=== PATIENT | male | born 1960 | race Two or more races ===

== ENCOUNTER 2017-11-30 22:33 | Emergency (ER) | payer OTHER ==
[~2017-11-30] VITALS: Ht 175.3 cm; Wt 121.1 kg
[2017-12-01] MEDS ORDERED: KETOROLAC TROMETH 60MG/2ML VIAL IM ONE (02:00)
[2017-12-01 02:14] VITALS: BP 140/95
== END 2017-12-01 01:49 | disposition home or self-care (01) ==
LOC: ER 22:40
DX: S76.312A Strain of muscle, fascia and tendon of the posterior muscle group at thigh level, left thigh, initial encounter (principal); S76.311A Strain of muscle, fascia and tendon of the posterior muscle group at thigh level, right thigh, initial encounter; Z88.0 Allergy status to penicillin; X58.XXXA Exposure to other specified factors, initial encounter; Y93.89 Activity, other specified; Y99.8 Other external cause status; Y92.89 Other specified places as the place of occurrence of the external cause
CPT/HCPCS: 93005; 96372; 99283; J1885

== ENCOUNTER 2018-09-30 16:31 | Emergency (ER) | payer OTHER ==
[~2018-09-30] VITALS: Ht 177.8 cm; Wt 109.8 kg
[2018-09-30 19:01] LABS: Basophils # (auto) 0.1 uL; Basophils % (auto) 1.3 % (0.0-2.0); Eosinophils # (auto) 1.1 uL; Eosinophils % (auto) 11.1 % (0.0-7.0); Hematocrit 43.6 % (41.0-53.0); Hemoglobin 14.6 g/dL (13.5-17.5); Lymphocytes # (auto) 2.6 uL; Lymphocytes % (auto) 25.9 % (10.0-50.0); Mean Corpuscular Hemoglobin 29.6 pg (28.0-32.0); Mean Corpuscular Hgb Conc. 33.4 g/dL (32.0-36.0); Mean Corpuscular Volume 88.7 fL (80.0-100.0); Monocytes # (auto) 0.8 uL; Monocytes % (auto) 7.5 % (0.0-12.0); Neutrophils # (auto) 5.4 uL; Neutrophils % (auto) 54.2 % (37.0-80.0); Platelet Count (auto) 357 10^3/uL (140-450); Red Blood Cells 4.92 10^6/uL (4.5-5.90); Red Cell Distribution Width 14.8 % (11.8-14.3)
[2018-09-30 19:21] LABS: INR 0.91 (0.9-1.15); Magnesium 2.4 mg/dL (1.6-2.6); Partial Thromboplastin Time 25.4 sec (23.78-33.04); Prothrombin Time 9.8 sec (9.27-12.13)
[2018-09-30 19:27] LABS: BUN/Creatinine Ratio 10.9; Bilirubin, Total 0.3 mg/dL (0.2-1.0); Calcium 8.9 mg/dL (8.5-10.1); Total Protein 7.9 g/dL (6.4-8.2)
[2018-09-30] MEDS ORDERED: cefTRIAXone SOD 1,000 MG VL IM ONE (21:30)
[2018-09-30 23:31] VITALS: BP 142/81
== END 2018-09-30 23:36 | disposition home or self-care (01) ==
LOC: ER 16:31 → EEVIPCON 16:31 → ER 23:36
DX: J20.9 Acute bronchitis, unspecified (principal); R94.5 Abnormal results of liver function studies; I10 Essential (primary) hypertension; Z87.891 Personal history of nicotine dependence
CPT/HCPCS: 36415; 71045; 80053; 82150; 83605; 83690; 83735; 84484; 85025; 85379; 85610; 85730; 87040; 93005; 94761; 96372; 99284; J0696

== ENCOUNTER 2020-03-07 15:23 | Inpatient (IN) | payer OTHER ==
[~2020-03-07] VITALS: Ht 175.3 cm; Wt 119.3 kg
[~2020-03-07 15:23] MED LIST: ALBUAER3 IN; LEVO-28 PO; PRED20TA2 PO
[2020-03-07 16:09] LABS: Basophils # (auto) 0.1 10 ^3/uL (0-0.2); Basophils % (auto) 0.7 % (0.0-2.0); Eosinophils # (auto) 0.1 10 ^3/uL (0-0.8); Eosinophils % (auto) 0.4 % (0.0-7.0); Hematocrit 45.4 % (41.0-53.0); Hemoglobin 15.3 g/dL (13.5-17.5); Lymphocytes # (auto) 1.4 10 ^3/uL (0.4-5.4); Lymphocytes % (auto) 11.1 % (10.0-50.0); Mean Corpuscular Hemoglobin 30.2 pg (28.0-32.0); Mean Corpuscular Hgb Conc. 33.7 g/dL (32.0-36.0); Mean Corpuscular Volume 89.8 fL (80.0-100.0); Monocytes # (auto) 0.4 10 ^3/uL (0-1.3); Monocytes % (auto) 2.9 % (0.0-12.0); Neutrophils # (auto) 10.9 10 ^3/uL (1.6-8.6); Neutrophils % (auto) 84.9 % (37.0-80.0); Platelet Count (auto) 327 10^3/uL (140-450); Red Blood Cells 5.06 10^6/uL (4.5-5.90); Red Cell Distribution Width 15.1 % (11.8-14.3); White Blood Cell 12.8 10^3/uL (4.4-10.8)
[2020-03-07 16:23] LABS: Calcium 9.2 mg/dL (8.5-10.1); Potassium 3.6 mmol/L (3.5-5.1)
[2020-03-07 16:26] LABS: BUN/Creatinine Ratio 13.9; Bilirubin, Total 0.4 mg/dL (0.2-1.0); Total Protein 7.6 g/dL (6.4-8.2)
[2020-03-07] MEDS ORDERED: levoFLOXacin 250 MG TAB PO ONE (17:00)
[2020-03-07] MEDS ORDERED: GASTROGRAFIN 30 ML SOL ONE ×2 (17:27→17:34)
[2020-03-07] MEDS ORDERED: NITROGLYCERIN 0.4 MG SL TAB SL PRN (19:15)
[2020-03-07] MEDS ORDERED: MORPHINE SULF INJ 2 MG/ML SYRINGE 1ML IV PRN (19:15)
[2020-03-07] MEDS: D5W/SOD CHL 0.45% 1,000 ML IV SCH (20:17)
[2020-03-07 20:53] VITALS: BP 113/68
--- NOTE | 2020-03-07 20:53 | NUR ---
MS admit from ER SOO,KINSEY INTERIANO admitted to tele/MS after SBAR received. Patient oriented to Allie Hylton, primary RN, unit, room, bed, and unit policies regarding patient care and visiting hours. Patient weighed by bedscale and encouraged to call if they need something. All questions and concerns addressed, patient verbalized understanding.
[2020-03-08] VITALS (7 sets, daily range): BP systolic 94–112; BP diastolic 60–79
[2020-03-08] MEDS: D5W/SOD CHL 0.45% 1,000 ML IV SCH ×4 (01:36→22:29)
--- NOTE | 2020-03-08 01:36 | NUR ---
MRSA swab sent to lab per MD order per protocol.
--- NOTE | 2020-03-08 01:37 | NUR ---
Med Rec Reviewed current medication with patient, patient stated he is also taking a blood pressure medication that he doesn't know the name or dosage of.
[2020-03-08 05:40] LABS: Basophils # (auto) 0.1 10 ^3/uL (0-0.2); Basophils % (auto) 0.5 % (0.0-2.0); Eosinophils # (auto) 0.1 10 ^3/uL (0-0.8); Eosinophils % (auto) 1.4 % (0.0-7.0); Hematocrit 41.6 % (41.0-53.0); Hemoglobin 13.8 g/dL (13.5-17.5); Lymphocytes # (auto) 3.1 10 ^3/uL (0.4-5.4); Lymphocytes % (auto) 29.4 % (10.0-50.0); Mean Corpuscular Hemoglobin 30.1 pg (28.0-32.0); Mean Corpuscular Hgb Conc. 33.3 g/dL (32.0-36.0); Mean Corpuscular Volume 90.4 fL (80.0-100.0); Monocytes # (auto) 0.8 10 ^3/uL (0-1.3); Monocytes % (auto) 7.8 % (0.0-12.0); Neutrophils # (auto) 6.4 10 ^3/uL (1.6-8.6); Neutrophils % (auto) 60.9 % (37.0-80.0); Nucleated Red Blood Cells % 0.1 %; Platelet Count (auto) 280 10^3/uL (140-450); Red Cell Distribution Width 15.5 % (11.8-14.3); White Blood Cell 10.5 10^3/uL (4.4-10.8)
[2020-03-08 06:01] LABS: Potassium 3.4 mmol/L (3.5-5.1)
[2020-03-08 06:07] LABS: BUN/Creatinine Ratio 15.5; Calcium 8.7 mg/dL (8.5-10.1)
--- NOTE | 2020-03-08 07:30 | NUR ---
Opening Shift Note Assumed care of patient, awake and alert. No S/S of distress. Patient denies having any SOB or pain. Pt stated that he does have "difficulties swallowing and talking". Patients voice is muffled. Patient also stated that his voice has been muffled for a few days. Bed in lowest and locked position with side rails UP X2 and call light in reach. Instructed on POC and to call for assist PRN, will continue to monitor for changes Q1hr and PRN.
[2020-03-08] MEDS: ENOXAPARIN SOD 40 MG/0.4 ML SYRINGE SC SCH (08:41)
[2020-03-08] MEDS: PANTOPRAZOLE 40 MG/10 ML VIAL INJ IV SCH (08:41)
[2020-03-08 11:50] LABS: Urine Bacteria NONE SEEN /hpf (None Seen); Urine Blood Negative /uL (Negative); Urine Specific Gravity 1.011 (1.001-1.035); Urine WBC 1 /hpf (0 - 3)
[2020-03-08 12:09] LABS: Alcohol, Urine < 3.0 mg/dL (0-10); Amphetamine Screen, Urine NEGATIVE (NEGATIVE); Barbiturate Scree,Urine NEGATIVE (NEGATIVE); Benzodiazephine Screen, Urine NEGATIVE (NEGATIVE); Cannabinoid Screen, Urine NEGATIVE (NEGATIVE); Cocaine Screen, Urine NEGATIVE (NEGATIVE); Opiate Scree,Urine NEGATIVE (NEGATIVE); Phencyclidine Screen, Urine NEGATIVE (NEGATIVE)
--- NOTE | 2020-03-08 13:10 | NUR ---
PATIENT STATED THAT HE IS HAVING DIFFICULTIES BREATHING. PATIENT SATURATING APPROXIMATELY 93-94% ON RA. RN PLACED PATIENT ON 2L NC AND PATIENT IS SATURATING 97-98% ON 2L NC. RN PAGED DR. WALTERS.
[2020-03-08] MEDS ORDERED: methylPREDNISolone SOD SUCC 125 MG/2 ML VL IV ONE (13:15)
--- NOTE | 2020-03-08 13:15 | NUR ---
SPOKE TO DR. WALTERS. RN UPDATED DR. WALTERS ON PT STATUS. MD AWARE AND NEW ORDERS RECEIVED, READ BACK AND VERIFIED. SEE EMR FOR ORDERS.
[2020-03-08] MEDS: ALBUTEROL SULF 2.5 MG/0.5ML(0.5%) NEB SOLN NEB PRN ×2 (13:22→19:18)
--- NOTE | 2020-03-08 16:16 | NUR ---
Nutrition Assessment Notes Please refer to link for full assessment notes. Est Energy needs: 0865-3909 kcals (14-18 kcal/kgBW) Est Protein needs: 109-145 gms/day (1.5-2.0 gm/kgIBW) d/t obesity Will continue to monitor and reassess prn. Addendum: 03/08/20 at [address] Amended: Links added.
--- NOTE | 2020-03-08 16:30 | NUR ---
SPOKE TO DR. WALTERS. RN NOTIFIED DR. WALTERS THAT THE PATIENT IS REQUESTING TO EAT. PER DR. WALTERS, HE WANTS DR. RAPP TO EVALUATE THE PATIENT PRIOR TO CHANGING THE DIET.
[2020-03-08] MEDS: BUDESONIDE (INHALATION) 0.5 MG/2 ML NEB NEB SCH (19:19)
--- NOTE | 2020-03-08 19:20 | NUR ---
Opening Shift Note Assumed care of patient after receiving report from SHAZIA Gregory. Patient awake and alert, resting in bed comfortably with no S/S of distress/SOB or pain. Call light within reach, bed in lowest position x2 side rails, HOB low fowlers. Instructed on POC and to call for assist PRN, will continue to monitor for changes Q1hr and PRN.
[2020-03-08] MEDS: methylPREDNISolone SOD SUCC 125 MG/2 ML VL IV SCH (22:29)
--- NOTE | 2020-03-09 00:38 | NUR ---
RT paged Patient requesting breathing treatment, called RT.
[2020-03-09] MEDS: ALBUTEROL SULF 2.5 MG/0.5ML(0.5%) NEB SOLN NEB PRN ×5 (00:56→20:10)
[2020-03-09 05:00] VITALS: BP 100/58
[2020-03-09] MEDS: D5W/SOD CHL 0.45% 1,000 ML IV SCH ×3 (05:26→17:55)
[2020-03-09] MEDS: BUDESONIDE (INHALATION) 0.5 MG/2 ML NEB NEB SCH ×2 (06:14→20:10)
--- NOTE | 2020-03-09 07:30 | NUR ---
Opening Shift Note Assumed care of patient, awake and alert. No S/S of distress. Patient denies having any SOB or pain. Pt stated that his difficulties in swallowing and talking "are better today". Patients voice is muffled, but has improved since yesterday. Bed in lowest and locked position with side rails UP X2 and call light in reach. Instructed on POC and to call for assist PRN, will continue to monitor for changes Q1hr and PRN.
[2020-03-09 07:50] VITALS: BP 99/67
[2020-03-09 09:00] VITALS: BP 99/67
[2020-03-09] MEDS: ENOXAPARIN SOD 40 MG/0.4 ML SYRINGE SC SCH (10:04)
[2020-03-09] MEDS: methylPREDNISolone SOD SUCC 125 MG/2 ML VL IV SCH ×2 (10:04→21:29)
[2020-03-09] MEDS: PANTOPRAZOLE 40 MG/10 ML VIAL INJ IV SCH ×2 (10:04→21:28)
[2020-03-09] MEDS: FLUCONAZOLE 200MG/100ML 100 ML IV SCH ×2 (10:05→12:59)
[2020-03-09 13:00] VITALS: BP 117/61
--- NOTE | 2020-03-09 13:18 | NUR ---
RT ON STAND BY DURING SWALLOWING EVAL. PT ON 2L WITH SPO2 97%.
--- NOTE | 2020-03-09 13:26 | NUR ---
SWALLOW EVALUATED. PATIENT HAS NATURAL TEETH UPPER, SOME LOWER, SOME MISSING. PATIENT ABLE TO FOLLOW DIRECTIONS. PATIENT ABLE TO TOLERATE PUREE DIET TEXTURE WITH NECTAR THICKENED LIQUIDS WITH NO OVERT SIGNS OR SYMPTOMS OF ASPIRATION. PATIENT COUGHED ON THIN LIQUIDS. PATIENT EDUCATED IN SAFETY OF SWALLOW INCLUDING SMALL BITES AND SIPS, SLOW RATE AND ALTERNATING SOLID AND LIQUIDS. NURSING NOTIFIED.
--- NOTE | 2020-03-09 13:48 | NUR ---
RN PAGED RT FOR BREATHING TX. ALBUTEROL PRN GIVEN AT APPROXIMATELY 1126. EXPLAINED TO RN A ONCE TIME TX HAS TO BE ORDERED FOR PT. PT HAD A BOWEL MOVEMENT ON THE FLOOR. SHAZIA VARELA AT BEDSIDE.
--- NOTE | 2020-03-09 13:50 | NUR ---
PATIENT STATED THAT HE IS "HAVING DIFFICULTIES BREATHING". PATIENT IS STANDING AT BEDSIDE AND WHEN RN ENCOURAGED THE PATIENT TO SIT DOWN, THE PATIENT STATED, "I CAN'T SIT, IT IS MUCH EASIER TO BREATH WHEN I STAND". AFTER ASSESSING THE PATIENT, THE PATIENTS LUNGS SOUND COARSE AND THE PATIENTS OXYGEN SATURATION IS APPROXIMATELY 90% ON RA. RN PLACED THE PATIENT ON 2L NC AND THE PATIENT BEGAN TO SATURATE APPROXIMATELY 94%. PATIENT STATED "THE DIFFICULTIES BREATHING JUST COME ON OUT OF NO WHERE AND FAST". PATIENT WAS EVENTUALLY ABLE TO SIT IN A CHAIR AT BEDSIDE AND STATED THAT HE IS BEGINNING TO "BREATH BETTER". RN PAGED RT AND MD.
--- NOTE | 2020-03-09 14:00 | NUR ---
PAGED DR. WALTERS. AWAITING CALL BACK.
--- NOTE | 2020-03-09 14:25 | NUR ---
PAGED DR. WALTERS. AWAITING CALL BACK.
--- NOTE | 2020-03-09 14:30 | NUR ---
SPOKE TO DR. WALTERS. RN UPDATED DR. GREEN ON PATIENTS SOB AND OXYGEN SATURATION OF 90% ON RA AND PATIENT PLACED ON 3L O2 VIA NC WITH A SATURATION OF 94%. MD AWARE AND NEW ORDERS RECEIVED, READ BACK AND VERIFIED. SEE EMR FOR ORDERS.
[2020-03-09] MEDS ORDERED: IOHEXOL 350 MG/ML 100ML IJ ONE (14:55)
[2020-03-09 16:57] VITALS: BP 101/69
--- NOTE | 2020-03-09 19:35 | NUR ---
Opening Shift Note Assumed care of patient, awake and alert. No S/S of distress/SOB or pain. Instructed on POC and to be NPO after MN, for Barium swallow tomorrow. Instructed to call for assist PRN, patient verbalized understanding. Safety precaution in place, call light within reach, will continue to monitor for changes Q1hr and PRN.
[2020-03-09 22:00] VITALS: BP 115/70
[2020-03-10] MEDS: D5W/SOD CHL 0.45% 1,000 ML IV SCH ×2 (01:52→06:00)
[2020-03-10] MEDS: ALBUTEROL SULF 2.5 MG/0.5ML(0.5%) NEB SOLN NEB PRN ×4 (02:34→23:30)
[2020-03-10 04:58] VITALS: BP 111/78
--- NOTE | 2020-03-10 07:35 | NUR ---
OPENING NOTE Assumed care of patient, awake and alert. No S/S of distress/SOB or pain. POC procedure in radiology esophageal barium swallow. Instructed to call for assist PRN, patient verbalized understanding. Safety precaution in place, call light within reach, [employer] guards at bedside, will continue to monitor for changes Q1hr and PRN.
[2020-03-10] MEDS ORDERED: GASTROGRAFIN 120 ML SOL ONE (08:56)
[2020-03-10 09:15] VITALS: BP 126/90
[2020-03-10] MEDS ORDERED: BARIUM SULFATE 98% 340 GM PWDR ONE (09:26)
[2020-03-10] MEDS ORDERED: EZ-GAS II GRANULES (RADIOLOGY USE) PO ONE (09:26)
[2020-03-10] MEDS: ENOXAPARIN SOD 40 MG/0.4 ML SYRINGE SC SCH (10:00)
[2020-03-10] MEDS: BUDESONIDE (INHALATION) 0.5 MG/2 ML NEB NEB SCH ×2 (10:04→19:02)
[2020-03-10] MEDS: methylPREDNISolone SOD SUCC 125 MG/2 ML VL IV SCH ×2 (10:12→21:54)
[2020-03-10] MEDS: PANTOPRAZOLE 40 MG/10 ML VIAL INJ IV SCH ×2 (10:12→21:53)
[2020-03-10] MEDS: FLUCONAZOLE 200MG/100ML 100 ML IV SCH ×2 (10:12→11:00)
--- NOTE | 2020-03-10 10:12 | NUR ---
Respiratory note: PRN ALBUTEROL MED-NEB ADMINISTERED AT THIS TIME FOR PATIENT C/O SOB. RN ADRIANA AT BEDSIDE AND AWARE OF MEDICATION ADMINISTRATION.
--- NOTE | 2020-03-10 11:24 | NUR ---
Nutrition Followup Notes WT: 112.4 kg Pt with RT when rounded this am. per records pt with dysphagia and to have barium test today. per records pt s/p ST eval and on pureed diet with no PO recorded yet. F/u mod 3-5 days Est Energy needs: 8225-8106 kcals (14-18 kcal/kgBW), Est Protein needs: 109-145 gms/day (1.5-2.0 gm/kgIBW) d/t obesity. Will continue to monitor and reassess prn. LABS: GLU 117 H, rest lab wnl GI: Last BM noted on 03/04 per RN doc. BS: 20 low risk, Please refer to wound assessment report for full details. PES: 1) Increased nutrient needs aeb pt with dysphagia, pending swallow eval r/t pt with no PO intake 2) Obesity aeb 152% IBW and BMI of 36.0 kg/m2 r/t energy intake in excess of energy needs Comments Will continue to closely monitor pertinent labs, NPO status, PO intake and skin status prn. Will followup in 3-5 days 1) continue assistance with meals. 2) consider ensure Enlive 1 carton bid if PO is low. 3) consider alternate nutrition support if GI is not accessible. 4) Continue current plan of care
[2020-03-10 12:42] LABS: Hepatitis A Ab IgM Negative; Hepatitis B Core IgM Negative; Hepatitis B Surface Antigen Negative (Negative); Hepatitis C Antibody Negative (Negative)
[2020-03-10 14:00] VITALS: BP 111/87
--- NOTE | 2020-03-10 14:29 | NUR ---
PATIENT REFUSED MRI-BRAIN CANNOT TOLERATE LYING FLAT.
[2020-03-10 16:44] VITALS: BP 107/70
--- NOTE | 2020-03-10 19:08 | NUR ---
Respiratory note: Administered PRN medneb tx per pt's request due to SOB. HR 93, RR 22, SPO2 98% on 3lpm nasal cannula. Officers at bedside. Pt aware to call for RT again if needed.
--- NOTE | 2020-03-10 19:29 | NUR ---
PATIENT C/O SOB. PAGED RESP STAT. O2 SAT 96% RECOMMEND CXR STAT. PATIENT SITTING UP IN CHAIR, TOLERATING WELL. WILL CONTINUE TO MONITOR.
--- NOTE | 2020-03-10 19:30 | NUR ---
Patient complained of SOB, restless and transferred to chair. Bumped up O2 at 4 Lpm/NC, O2 Sat at 96%. RT at bedside. Paged Dr. Grajeda, awaiting call back
--- NOTE | 2020-03-10 19:38 | NUR ---
Dr. Grajeda called and updated on patient's status. Received order at this time and read back. Received also an order to put Pulmo Consult for SOB. Acknowledged and will carry out order.
--- NOTE | 2020-03-10 19:46 | NUR ---
Dr. Patricio at bedside. Updated on patient's status. Received orders at this time and read back
[2020-03-10] MEDS ORDERED: LORazepam 2MG/ML-1ML VIAL IV PRN (20:00)
--- NOTE | 2020-03-10 20:05 | NUR ---
Called CT Scan and informed of Stat CT Angio of the chest. Per Staff, machine is not available at this time because it was used by Covid patient. Put patient on NPO at this time
[2020-03-10] MEDS: ENOXAPARIN SOD 120 MG/0.8 ML SYRINGE SC SCH (21:54)
[2020-03-10 22:07] VITALS: BP 124/72
--- NOTE | 2020-03-10 23:30 | NUR ---
Respiratory note: AT BEDSIDE FOR MED XU MISTRY.
[2020-03-11] MEDS ORDERED: IOHEXOL 350 MG/ML 100ML IJ ONE ×2 (00:06→09:09)
--- NOTE | 2020-03-11 00:45 | NUR ---
Brought patient down for CT Angio of the chest, patient unable to lay down and became anxious. Brought patient up in the room with prison guards
[2020-03-11 05:00] VITALS: BP 129/75
[2020-03-11] MEDS: ALBUTEROL SULF 2.5 MG/0.5ML(0.5%) NEB SOLN NEB PRN ×2 (06:08→19:26)
[2020-03-11] MEDS: BUDESONIDE (INHALATION) 0.5 MG/2 ML NEB NEB SCH ×2 (06:08→22:45)
[2020-03-11 06:44] LABS: Basophils # (auto) 0 10 ^3/uL (0-0.2); Basophils % (auto) 0.2 % (0.0-2.0); Eosinophils # (auto) 0 10 ^3/uL (0-0.8); Hematocrit 41.1 % (41.0-53.0); Hemoglobin 13.6 g/dL (13.5-17.5); Lymphocytes % (auto) 6.9 % (10.0-50.0); Mean Corpuscular Hemoglobin 30.2 pg (28.0-32.0); Mean Corpuscular Hgb Conc. 33.1 g/dL (32.0-36.0); Mean Corpuscular Volume 91.1 fL (80.0-100.0); Monocytes # (auto) 0.3 10 ^3/uL (0-1.3); Monocytes % (auto) 2.1 % (0.0-12.0); Neutrophils # (auto) 13.3 10 ^3/uL (1.6-8.6); Neutrophils % (auto) 90.8 % (37.0-80.0); Platelet Count (auto) 280 10^3/uL (140-450); Red Blood Cells 4.51 10^6/uL (4.5-5.90); Red Cell Distribution Width 15.8 % (11.8-14.3); White Blood Cell 14.6 10^3/uL (4.4-10.8)
[2020-03-11 07:02] LABS: Albumin 3.3 g/dL (3.4-5.0); Potassium 4.4 mmol/L (3.5-5.1)
[2020-03-11 07:07] LABS: Bilirubin, Total 0.3 mg/dL (0.2-1.0); Total Protein 6.6 g/dL (6.4-8.2)
[2020-03-11 08:39] VITALS: BP 124/82
[2020-03-11] MEDS: ENOXAPARIN SOD 120 MG/0.8 ML SYRINGE SC SCH (10:16)
[2020-03-11] MEDS: PANTOPRAZOLE 40 MG/10 ML VIAL INJ IV SCH ×2 (10:16→21:35)
[2020-03-11] MEDS: methylPREDNISolone SOD SUCC 125 MG/2 ML VL IV SCH (10:16)
[2020-03-11] MEDS: FLUCONAZOLE 200MG/100ML 100 ML IV SCH ×2 (10:16→11:25)
[2020-03-11] MEDS: ASPirin 81 mg TAB PO SCH (10:16)
[2020-03-11 13:00] VITALS: BP 147/97
[2020-03-11 17:00] VITALS: BP 142/96
[2020-03-11] MEDS: PYRIDOSTIGMINE BROMIDE 60 MG TAB PO SCH ×2 (19:15→21:35)
--- NOTE | 2020-03-11 19:26 | NUR ---
Respiratory note: AT BEDSIDE FOR MED XU MISTRY.
--- NOTE | 2020-03-11 19:27 | NUR ---
Respiratory note: AT BEDSIDE FOR MED NEB TX. TX GIVEN VIA EZPAP, WITH GOOD PT EFFORT.
--- NOTE | 2020-03-11 19:36 | NUR ---
Dr. Vargas/New orders/Transfer Dr. Vargas was in to see the patient. He does not think the patient had a stroke. He thinks it's possible the patient has Myasthenia Gravis. He did a test where he put an ice pack on the droopy eyed side of the patient's face and after only a few minutes, the patient was able to open his eye all the way. He wrote an order for a medication. He also ordered Forced vital capacity to be done by RT now and every 4 hours. RT was paged. Due to this and the possibility of respiratory failure, he wants the patient transferred to [facility]. Dr. Patricio was on the floor making rounds and was notified about the patient. This nurse also notified the charge nurse who stated she will let the warehouse administrative assistant know. All of this information was passed along to the manager critical care nurse.
--- NOTE | 2020-03-11 19:58 | NUR ---
Report received from SHAZIA Mcmahon, day shift after Dr. Vargas gave orders to transfer pt to [facility] 2/2 diagnosis of possible Myasthenia Gravis and RT care needed now and q4h. Pt not seen by this RN. Charge nurse, SHAZIA Ham, informed this RN to give report to SHAZIA Guardado; done. Tele box requested by this RN and obtained by MANAGEMENT SME; placed on pt by MANAGEMENT SME.
--- NOTE | 2020-03-11 20:30 | NUR ---
NEGATIVE INSPIRATORY FORCE VIA NIF MANOMETER PERFORMED. Pt gave 4 good effort attempts with proper education/instructions and seal. results are as followed: -[id number] -[id number] -[id number] -[id number]
--- NOTE | 2020-03-11 21:00 | NUR ---
COMMUNICATED NIF RESULTS WITH DR WHITTEN, PT IS TO BE MONITORED FOR DECLINE AND TO CONTINUE Q4 NIF WITH TXS PRE AND POST.
--- NOTE | 2020-03-11 21:01 | NUR ---
SHAZIA ROBERTSON COMMUNICATED ON NIF RESULTS AND MD WHITTEN COMMUNICATION.
[2020-03-11] MEDS: ATORVASTATIN 20 MG TAB PO SCH (21:35)
[2020-03-11] MEDS: IPRATROPIUM BROM 0.5 MG/2.5ML INH SOL NEB SCH (22:45)
[2020-03-11] MEDS: ACETYLCYSTEINE 20%(200MG/ML) SOL 4ML NEB SCH (22:46)
[2020-03-11] MEDS: ALBUTEROL SULF 2.5 MG/0.5ML(0.5%) NEB SOLN NEB SCH (22:47)
[2020-03-11 22:54] VITALS: BP 148/87
--- NOTE | 2020-03-11 22:55 | NUR ---
Pt expressed in the beginning of the tx that he feels much better and that the txs seem to be working. During txs via ezpap pt states "these long treatments are exhausting, am I gonna get theses all the time now". Explained/educated pt on med scheduled and on the need for this lung exercise due to atelectasis per cxr. Pt explains his understanding and that he will comply pt stated "ill do whatever you guys nee me to do, to get better".
--- NOTE | 2020-03-11 22:57 | NUR ---
NEGATIVE INSPIRATORY FORCE VIA NIF MANOMETER PERFORMED. Pt gave 3 good effort attempts pre and post with proper education/instructions and seal. results are as followed: PRE TX -[id number] -[id number] -[id number] POST TX -[id number] -[id number] -[id number]
--- NOTE | 2020-03-11 23:00 | NUR ---
Respiratory note: SHAZIA Guardado communicated on 22:00 pre and post NIF results.
[2020-03-12] VITALS (8 sets, daily range): BP systolic 94–125; BP diastolic 56–86
[2020-03-12] MEDS: IPRATROPIUM BROM 0.5 MG/2.5ML INH SOL NEB SCH ×6 (03:05→22:38)
[2020-03-12] MEDS: ALBUTEROL SULF 2.5 MG/0.5ML(0.5%) NEB SOLN NEB SCH ×6 (03:05→22:38)
--- NOTE | 2020-03-12 03:15 | NUR ---
Negative Inspiratory Force measurement obtained. Pt gave 3 attempts with good effort pre and post tx, with proper education/instructions and seal around mouth piece. PRE TX -[id number] -[id number] -[id number] POST TX -[id number] -[id number] -[id number]
[2020-03-12] MEDS: PYRIDOSTIGMINE BROMIDE 60 MG TAB PO SCH ×4 (05:36→21:42)
--- NOTE | 2020-03-12 06:38 | NUR ---
Respiratory note: At bedside for scheduled tx. Pre-tx NIF attempted x3 with good effort, measurements obtained: -22, -18, -18 cmH2O. Breathing tx administered with EZ-PAP, pt tolerated well, no adverse reactions noted. Pt says he is feeling better this morning, able to lay bed back a little more. Post-tx NIF attempted x3 with measurements obtained: -20, -20, -18 cmH2O. Pt back on 3lpm nasal cannula, SPO2 94%. No s/s of respiratory distress noted at this time. Pt aware to call for RT if needed. Officers at bedside.
[2020-03-12] MEDS: ACETYLCYSTEINE 20%(200MG/ML) SOL 4ML NEB SCH ×3 (06:39→22:42)
--- NOTE | 2020-03-12 08:00 | NUR ---
Opening Shift Note Assumed care of patient, awake, alert and oriented X4. No S/S of distress/SOB or pain. Right eye droop but patient able to open eye and see clearly, mouth symmetrical, verbalizing no difficulty with swallowing. O2 @ 3 LPM via nasal cannula with sats @ 94%. Tele# 69, sinus bradycardia @ 54 bpm. IV to right antecubital, 20 gauge, patent and saline locked. Instructed on POC and to call for assist PRN, verbalized understanding. Bed locked, in lowest position, call light within reach, guards X2 at bedside, will continue to monitor for changes Q1hr and PRN.
[2020-03-12] MEDS ORDERED: MORPHINE SULF INJ 2 MG/ML SYRINGE 1ML IV PRN ×2 (08:15)
[2020-03-12] MEDS ORDERED: NITROGLYCERIN 0.4 MG SL TAB SL PRN ×2 (08:15)
[2020-03-12] MEDS: BUDESONIDE (INHALATION) 0.5 MG/2 ML NEB NEB SCH ×2 (10:18→19:50)
--- NOTE | 2020-03-12 10:19 | NUR ---
Respiratory note: At bedside for medneb tx. Pre-tx NIF attempted x3 with best effort measured at 30 cmH2O. Medneb tx administered with EZ-PAP and CPT, pt tolerated well, no adverse reactions noted. Post-tx NIF attempted x3 with best effort measured at 26 cmH2O. SHAZIA Frank at bedside, aware of NIF measurements. Pt sitting in chair, back on 3lpm nasal cannula SPO2 95%, no s/s of respiratory distress noted.
[2020-03-12] MEDS: PANTOPRAZOLE 40 MG/10 ML VIAL INJ IV SCH ×2 (10:24→21:42)
[2020-03-12] MEDS: FLUCONAZOLE 200MG/100ML 100 ML IV SCH ×2 (10:24→12:00)
[2020-03-12] MEDS: ASPirin 81 mg TAB PO SCH (10:24)
[2020-03-12] MEDS: ENOXAPARIN SOD 40 MG/0.4 ML SYRINGE SC SCH (10:25)
--- NOTE | 2020-03-12 14:30 | NUR ---
NEUROLOGY Dr Vargas at bedside for Neurology follow up. New orders received and followed through. Informed patient unable to tolerate lying flat, therefore unable to have CT Angio, verbalized will have patient try again tomorrow. Informed Elida, radiology, verbalized understanding.
[2020-03-12] MEDS: SODIUM CHLOR 0.9% PF (SALINE LOCK) 10ML VIAL/SYR IV SCH ×2 (14:56→21:42)
--- NOTE | 2020-03-12 15:07 | NUR ---
Respiratory note: At bedside for medneb tx. Pre-tx NIF attempted x3, best effort measured -28 cmH2O. Medneb tx administered with EZ-PAP and CPT, pt tolerated well, no adverse reactions noted. Post-tx NIF attempted x3, best effort measured -20 cmH2O. Pt resting in bed, no s/s of respiratory distress noted, 3lpm nasal cannula SPO2 97%. Officers at bedside.
--- NOTE | 2020-03-12 15:42 | NUR ---
CT ANGIO Attempted to lye patient flat to see if he could tolerate in prep for CT Angio, once patient's bed was placed flat, patient immediately began complaining of chest heaviness and inability to take a deep breath. Message left with Dr Vargas exchange to notify, awaiting return call. Informed Chaparrita with radiology, verbalized understanding. Informed I will notify her of Dr Vargas orders. Patient set back up in high fowlers, verbalized symptoms resolved.
--- NOTE | 2020-03-12 19:00 | NUR ---
Care endorsed to SHAZIA Guardado, night nurse.
--- NOTE | 2020-03-12 19:57 | NUR ---
RT NOTE 'PT WAS SEEN BY RT FOR HHN TX. PT TOLERATES WELL VIA MOUTHPIECE WITH EZ-PAP. PT HAD NIF ASSESSMENT PRE TX WITH 3 GOOD EFFORTS READING -22, -24, -22 CMH2O. MANUAL CPT DONE AND TOLERATED WELL. POST TX NIF WITH 3 GOOD EFFORTS READING -19,-21,-19. PT STATES ITS HARDER TO DO NIF POST TX BECAUSE THE EZ-PAP MAKES HIM TIRED. Addendum: 03/12/20 at 2002 by Aliyah Dunn RT Amended: Links added.
[2020-03-12] MEDS: ATORVASTATIN 20 MG TAB PO SCH (21:42)
--- NOTE | 2020-03-12 22:49 | NUR ---
RT NOTE PT WAS SEEN BY RT FOR HHN TX. PT TOLERATES WELL VIA MOUTHPIECE WITH EZ-PAP. PT HAD NIF ASSESSMENT PRE TX WITH 3 GOOD EFFORTS READING -24, -22, -24 CMH2O. MANUAL CPT DONE AND TOLERATED WELL. POST TX NIF WITH 3 GOOD EFFORTS READING -25,-30,-25. PT APPEARS TO TOLERATE TX WELL. Addendum: 03/12/20 at 2326 by Aliyah Dunn RT Amended: Links added.
[2020-03-13 00:20] VITALS: BP 97/57
--- NOTE | 2020-03-13 02:26 | NUR ---
RT NOTE PT WAS SEEN BY RT FOR HHN TX. PT TOLERATES WELL VIA MOUTHPIECE WITH EZ-PAP. PT HAD NIF ASSESSMENT PRE TX WITH 3 GOOD EFFORTS READING -26, -30, -30 CMH2O. MANUAL CPT DONE AND TOLERATED WELL. POST TX NIF WITH 3 GOOD EFFORTS READING -32,-30,-28. PT APPEARS TO TOLERATE TX WELL. Addendum: 03/13/20 at 0252 by Aliyah Dunn RT Amended: Links added.
[2020-03-13] MEDS: ALBUTEROL SULF 2.5 MG/0.5ML(0.5%) NEB SOLN NEB SCH ×6 (02:42→22:20)
[2020-03-13] MEDS: IPRATROPIUM BROM 0.5 MG/2.5ML INH SOL NEB SCH ×6 (02:42→22:18)
[2020-03-13 05:00] VITALS: BP 111/60
[2020-03-13] MEDS: SODIUM CHLOR 0.9% PF (SALINE LOCK) 10ML VIAL/SYR IV SCH ×3 (05:49→21:29)
[2020-03-13] MEDS: PYRIDOSTIGMINE BROMIDE 60 MG TAB PO SCH ×4 (05:49→21:29)
[2020-03-13] MEDS: ACETYLCYSTEINE 20%(200MG/ML) SOL 4ML NEB SCH ×3 (06:28→22:21)
[2020-03-13] MEDS: BUDESONIDE (INHALATION) 0.5 MG/2 ML NEB NEB SCH ×2 (06:28→18:26)
--- NOTE | 2020-03-13 08:00 | NUR ---
Opening Shift Note Assumed care of patient, awake, alert and oriented X4. No S/S of distress/SOB or pain. Right eye droopy but patient able to open his eye when asked. O2 @ 2 LPM via nasal cannula with sats @ 98%. Tele# 69, sinus bradycardia @ 54 bpm. IV to right forearm, 20 gauge, patent and saline locked. Instructed on POC and to call for assist PRN, verbalized understanding. Bed locked, in lowest position, call light within reach, will continue to monitor for changes Q1hr and PRN. Addendum: 03/13/20 at 1208 by Monika Garduno RN Guards X2 at bedside.
[2020-03-13 08:57] VITALS: BP 102/48
[2020-03-13] MEDS: PANTOPRAZOLE 40 MG/10 ML VIAL INJ IV SCH ×2 (10:32→21:29)
[2020-03-13] MEDS: FLUCONAZOLE 200MG/100ML 100 ML IV SCH ×2 (10:32→12:04)
[2020-03-13] MEDS: ENOXAPARIN SOD 40 MG/0.4 ML SYRINGE SC SCH (10:33)
[2020-03-13] MEDS: ASPirin 81 mg TAB PO SCH (10:33)
--- NOTE | 2020-03-13 12:07 | NUR ---
RESPIRATORY Dr Patricio at bedside for respiratory consult follow up. Plan of care discussed with the patient, verbalized understanding.
--- NOTE | 2020-03-13 12:11 | NUR ---
Nutrition Followup Notes WT: 113.4kg Pt with treatment team this morning when rounding. Pt appetite is good aeb pt po intake of 96% x3 days per RN nutrition doc. Est Energy needs: 6917-9497 kcals (14-18 kcal/kgBW), Est Protein needs: 73-87g (1-1.2g/kg IBW 72.7kg). Will continue to monitor and reassess prn. LABS: GLU 117 H, rest lab wnl GI: Last BM noted on 03/04 per RN doc. BS: 20 low risk, Please refer to wound assessment report for full details. PES: Partially resolved, pt with adequate po intake x 3 days 1) Increased nutrient needs aeb pt with dysphagia, pending swallow eval r/t pt with no PO intake 2) Obesity aeb 152% IBW and BMI of 36.0 kg/m2 r/t energy intake in excess of energy needs Comments Will continue to closely monitor pertinent labs, PO intake and skin status prn. Will followup in 3-5 days 1) continue assistance with meals. 2) consider ensure Enlive 1 carton bid if PO is low. 3) consider alternate nutrition support if GI is not accessible. 4) Continue current plan of care
[2020-03-13 13:08] VITALS: BP 110/78
--- NOTE | 2020-03-13 13:57 | NUR ---
Patient continues to be unable to lye flat, verbalized he feels he can't breath. Informed Elida, Radiology, verbalized understanding.
[2020-03-13 16:33] VITALS: BP 109/63
--- NOTE | 2020-03-13 19:02 | NUR ---
Care endorsed to SHAZIA Rutherford, night nurse.
--- NOTE | 2020-03-13 20:30 | NUR ---
open note assumed care of pt. upon entering room pt awake, alert and oriented x4. pt on 2L nc no distress noted or expressed. pt denies any pain. pt updated on plan of care. pt given incentive spirometer, instructions on its use and was observed performing action correctly. pt vital capacity at this time 1250. bed locked, low and 2xrails up. call light in reach. this nurse to round q1hr and prn. encouraged pt to call as needed.
[2020-03-13 21:19] VITALS: BP 110/69
[2020-03-13] MEDS: ATORVASTATIN 20 MG TAB PO SCH (21:29)
[2020-03-13] MEDS: IV IMMUNE GLOBULIN(IVIG) 10% 20G/200ML IV SCH (22:30)
[2020-03-14] MEDS: IPRATROPIUM BROM 0.5 MG/2.5ML INH SOL NEB SCH ×6 (02:06→22:04)
[2020-03-14] MEDS: ALBUTEROL SULF 2.5 MG/0.5ML(0.5%) NEB SOLN NEB SCH ×6 (02:06→22:03)
--- NOTE | 2020-03-14 02:06 | NUR ---
NIF 1800: -34 2200: -30 0205: -40
[2020-03-14 05:00] VITALS: BP 111/70
[2020-03-14] MEDS: SODIUM CHLOR 0.9% PF (SALINE LOCK) 10ML VIAL/SYR IV SCH ×3 (06:37→22:04)
[2020-03-14] MEDS: BUDESONIDE (INHALATION) 0.5 MG/2 ML NEB NEB SCH ×2 (07:37→18:57)
[2020-03-14] MEDS: ACETYLCYSTEINE 20%(200MG/ML) SOL 4ML NEB SCH ×3 (07:37→22:03)
--- NOTE | 2020-03-14 07:53 | NUR ---
NIF PRE/POST, -60/-60.
[2020-03-14 08:41] VITALS: BP 114/70
--- NOTE | 2020-03-14 09:10 | NUR ---
PYRIDOSTIGMINE MED DELIVERED BY PHARMACY. WILL ADMINISTERED NOW.
[2020-03-14] MEDS: ASPirin 81 mg TAB PO SCH (09:13)
[2020-03-14] MEDS: ENOXAPARIN SOD 40 MG/0.4 ML SYRINGE SC SCH (09:14)
[2020-03-14] MEDS: PANTOPRAZOLE 40 MG/10 ML VIAL INJ IV SCH ×2 (09:14→22:04)
[2020-03-14] MEDS: PYRIDOSTIGMINE BROMIDE 60 MG TAB PO SCH ×4 (09:15→22:04)
--- NOTE | 2020-03-14 10:53 | NUR ---
PRE/POST NIF, -60/-60.
[2020-03-14] MEDS: IV IMMUNE GLOBULIN(IVIG) 10% 20G/200ML IV SCH (10:56)
[2020-03-14] MEDS ORDERED: IOHEXOL 350 MG/ML 100ML IJ ONE (12:46)
[2020-03-14 13:00] VITALS: BP 103/68
[2020-03-14 16:16] VITALS: BP 112/79
--- NOTE | 2020-03-14 20:25 | NUR ---
open note assumed care of pt. upon entering room pt eyes closed, breahting even and unlabored on 2L NC. no s/s distress noted. bed locked, low and 2x rails up. call light in reach. this nurse to update pt on plan of care at later time. this nurse to round q1hr and prn.
--- NOTE | 2020-03-14 20:30 | NUR ---
paged Dr Vargas to update on pt condition. orders that pt remain on [facility] status and will reevaluate on a daily basis.
[2020-03-14 21:54] VITALS: BP 100/64
[2020-03-14] MEDS: ATORVASTATIN 20 MG TAB PO SCH (22:04)
[2020-03-15] MEDS: IPRATROPIUM BROM 0.5 MG/2.5ML INH SOL NEB SCH ×6 (02:00→22:35)
[2020-03-15] MEDS: ALBUTEROL SULF 2.5 MG/0.5ML(0.5%) NEB SOLN NEB SCH ×6 (02:00→22:35)
--- NOTE | 2020-03-15 02:30 | NUR ---
Respiratory note: NIF: 1800 -60 2200 -60 0200 -50
[2020-03-15 04:19] VITALS: BP 100/64
[2020-03-15 04:53] VITALS: BP 107/69
[2020-03-15] MEDS: SODIUM CHLOR 0.9% PF (SALINE LOCK) 10ML VIAL/SYR IV SCH ×3 (06:28→22:34)
[2020-03-15] MEDS: PYRIDOSTIGMINE BROMIDE 60 MG TAB PO SCH ×4 (06:28→22:34)
[2020-03-15] MEDS: BUDESONIDE (INHALATION) 0.5 MG/2 ML NEB NEB SCH ×2 (06:29→22:35)
[2020-03-15 09:00] VITALS: BP 115/80
[2020-03-15] MEDS: ENOXAPARIN SOD 40 MG/0.4 ML SYRINGE SC SCH (10:18)
[2020-03-15] MEDS: ASPirin 81 mg TAB PO SCH (10:18)
[2020-03-15] MEDS: IV IMMUNE GLOBULIN(IVIG) 10% 20G/200ML IV SCH (10:18)
[2020-03-15] MEDS: PANTOPRAZOLE 40 MG/10 ML VIAL INJ IV SCH ×2 (10:18→22:34)
[2020-03-15 11:27] LABS: Basophils # (auto) 0 10 ^3/uL (0-0.2); Basophils % (auto) 0.1 % (0.0-2.0); Eosinophils # (auto) 0.8 10 ^3/uL (0-0.8); Eosinophils % (auto) 10.2 % (0.0-7.0); Hematocrit 43.7 % (41.0-53.0); Hemoglobin 14.4 g/dL (13.5-17.5); Lymphocytes # (auto) 1.6 10 ^3/uL (0.4-5.4); Lymphocytes % (auto) 21.2 % (10.0-50.0); Mean Corpuscular Hemoglobin 30.4 pg (28.0-32.0); Mean Corpuscular Hgb Conc. 33.1 g/dL (32.0-36.0); Mean Corpuscular Volume 91.9 fL (80.0-100.0); Monocytes # (auto) 0.6 10 ^3/uL (0-1.3); Monocytes % (auto) 8.3 % (0.0-12.0); Neutrophils # (auto) 4.5 10 ^3/uL (1.6-8.6); Neutrophils % (auto) 60.2 % (37.0-80.0); Platelet Count (auto) 248 10^3/uL (140-450); Red Blood Cells 4.76 10^6/uL (4.5-5.90); Red Cell Distribution Width 16.3 % (11.8-14.3); White Blood Cell 7.5 10^3/uL (4.4-10.8)
[2020-03-15 11:45] LABS: Potassium 4.1 mmol/L (3.5-5.1)
[2020-03-15 11:54] LABS: BUN/Creatinine Ratio 10.2; Bilirubin, Total 0.4 mg/dL (0.2-1.0); Total Protein 7.7 g/dL (6.4-8.2)
--- NOTE | 2020-03-15 15:00 | NUR ---
DR. WALTERS CONTACTED AND MADE AWARE OF DR. CORDOVA REQUEST FOR CARDIOTHORACIC CONSULT AND INITIATION OF HYPOTHYROIDISM MEDICATIONS.
[2020-03-15 16:34] VITALS: BP 134/85
--- NOTE | 2020-03-15 17:10 | NUR ---
SWALLOW RE-EVALUATED. PATIENT ABLE TO TOLERATE REGULAR DIET TEXTURE WITH THIN LIQUIDS WITH NO OVERT SIGNS OR SYMPTOMS OF ASPIRATION. NURSING NOTIFIED.
--- NOTE | 2020-03-15 18:32 | NUR ---
Respiratory note: NIF >-60 PRE AND POST TX.
--- NOTE | 2020-03-15 19:15 | NUR ---
opening note pt A&Ox4. respirations even nonlabored 2Lnc. pt is inmate, 2 [employer] guards at bedside. left wrist chained to bed. POC discussed. Bed in low locked position, call light within reach.
[2020-03-15 21:30] VITALS: BP 101/61
--- NOTE | 2020-03-15 22:19 | NUR ---
Respiratory note: NIF >-60 PRE AND POST TX.
[2020-03-15] MEDS: ATORVASTATIN 20 MG TAB PO SCH (22:35)
[2020-03-16] MEDS: ALBUTEROL SULF 2.5 MG/0.5ML(0.5%) NEB SOLN NEB SCH ×6 (02:25→22:13)
[2020-03-16] MEDS: IPRATROPIUM BROM 0.5 MG/2.5ML INH SOL NEB SCH ×6 (02:25→22:13)
[2020-03-16 05:00] VITALS: BP 116/69
--- NOTE | 2020-03-16 05:42 | NUR ---
pt up, sitting in chair at bedside.
[2020-03-16] MEDS: LEVOTHYROXINE SODIUM 100 MCG TAB PO SCH (06:37)
[2020-03-16] MEDS: PYRIDOSTIGMINE BROMIDE 60 MG TAB PO SCH ×4 (06:37→21:50)
[2020-03-16] MEDS: SODIUM CHLOR 0.9% PF (SALINE LOCK) 10ML VIAL/SYR IV SCH ×3 (06:37→21:50)
--- NOTE | 2020-03-16 07:00 | NUR ---
closing note pt is awake and alert. pt is sitting in chair at bedside, watching tv and reading a book. respirations are even and nonlabored on 3Lnc. pt denies pain or discomfort at this time. call light is within reach. two federal guards remain at bedside.
--- NOTE | 2020-03-16 07:27 | NUR ---
RT NOTE: PT REFUSED CPT AT THIS TIME. NO SIGNS OF RESPIRATORY DISTRESS NOTED. TX GIVEN WITH EZ-PAP. PRE NIF -46 POST NIF 50. WILL CONTINUE TO MONITOR.
[2020-03-16 08:00] VITALS: BP 102/69
[2020-03-16] MEDS: ASPirin 81 mg TAB PO SCH (10:04)
[2020-03-16] MEDS: ENOXAPARIN SOD 40 MG/0.4 ML SYRINGE SC SCH (10:04)
[2020-03-16] MEDS: PANTOPRAZOLE 40 MG/10 ML VIAL INJ IV SCH ×2 (10:04→21:50)
[2020-03-16] MEDS: IV IMMUNE GLOBULIN(IVIG) 10% 20G/200ML IV SCH (10:05)
[2020-03-16] MEDS: BUDESONIDE (INHALATION) 0.5 MG/2 ML NEB NEB SCH ×2 (10:56→22:13)
--- NOTE | 2020-03-16 10:57 | NUR ---
RT NOTE: PT STATED HE DID NOT FEEL HE NEEDED CPT AT THIS TIME. NO SIGNS OF RESPIRATORY DISTRESS NOTED. PRE AND POST NIF WERE BOTH GREATER THAN -60. GUARDS AT BEDSIDE. PT AWARE I WILL RETURN FOR NEXT TX. WILL CONTINUE TO MONITOR.
--- NOTE | 2020-03-16 12:50 | NUR ---
DR. LEZAMA IN TO SEE PT.
--- NOTE | 2020-03-16 13:20 | NUR ---
IV INFILTRATION TO LAC#20, IV DC'D, CATHETER INTACT. NO PHLEBITIS. EXTREMITY ELEVATED. IV INSERTION TO RIGHT HAND #20, FLUSHES WELL. PT TOLERATED PROCEDURE WELL. BED LOCKED AND IN LOWEST POSITION, CALL LIGHT WITHIN REACH. WILL CONTINUE TO MONITOR.
--- NOTE | 2020-03-16 14:35 | NUR ---
RT NOTE: PRE AND POST NIF WERE BOTH >-60. NO SIGNS OF RESPIRATORY DISTRESS NOTED. GUARDS AT BEDSIDE. WILL CONTINUE TO MONITOR.
--- NOTE | 2020-03-16 19:10 | NUR ---
opening note pt A&Ox4. respirations even and nonlabored on 3Lnc. no pain or discomfort at this time. POC discussed. bed in low locked position, call light within reach.
[2020-03-16 21:22] VITALS: BP 111/63
[2020-03-16] MEDS: ATORVASTATIN 20 MG TAB PO SCH (21:50)
--- NOTE | 2020-03-16 22:29 | NUR ---
NIF CHECKED AT 18:30 AND 22:15, > -60 WITH GOOD EFFORT
--- NOTE | 2020-03-17 00:50 | NUR ---
rounds pt resting in semi fowlers with eyes closed. no s/s of pain or discomfort. will continue to monitor.
[2020-03-17] MEDS: IPRATROPIUM BROM 0.5 MG/2.5ML INH SOL NEB SCH ×6 (02:11→22:05)
[2020-03-17] MEDS: ALBUTEROL SULF 2.5 MG/0.5ML(0.5%) NEB SOLN NEB SCH ×6 (02:12→22:05)
--- NOTE | 2020-03-17 03:05 | NUR ---
rounds pt is awake and alert, watching tv. pt denies pain or discomfort at this time. will continue to monitor.
[2020-03-17 05:00] VITALS: BP 106/73
[2020-03-17] MEDS: SODIUM CHLOR 0.9% PF (SALINE LOCK) 10ML VIAL/SYR IV SCH ×3 (06:20→21:52)
[2020-03-17] MEDS: PYRIDOSTIGMINE BROMIDE 60 MG TAB PO SCH ×4 (06:20→22:24)
[2020-03-17] MEDS: LEVOTHYROXINE SODIUM 100 MCG TAB PO SCH (06:21)
--- NOTE | 2020-03-17 07:14 | NUR ---
Respiratory note: PRE/POST BRONCHODILATOR NIF COMPLETED. PRE > -60, POST > -60
--- NOTE | 2020-03-17 07:37 | NUR ---
closing note pt sitting in bedside chair watching tv. no complaints of pain or discomfort. endorsed care to SHAZIA Hoffman.
[2020-03-17 08:00] VITALS: BP 106/70
--- NOTE | 2020-03-17 08:00 | NUR ---
Received pt resting in bed, call light within reach, guards at bed side, pt denies any pain or discomfort at this time, pt reports feeling better, pt reports been able to eat regular food well, and able to get out of bed to chair with minimal assistance, will continue to monitor pt.
[2020-03-17 08:26] VITALS: BP 106/70
[2020-03-17] MEDS: BUDESONIDE (INHALATION) 0.5 MG/2 ML NEB NEB SCH ×2 (10:31→19:01)
--- NOTE | 2020-03-17 10:38 | NUR ---
Respiratory note: PRE/POST BRONCHODILATOR NIF COMPLETED. PRE > -60, POST > -60
[2020-03-17] MEDS: ASPirin 81 mg TAB PO SCH (10:51)
[2020-03-17] MEDS: PANTOPRAZOLE 40 MG/10 ML VIAL INJ IV SCH ×2 (10:51→21:52)
[2020-03-17] MEDS: ENOXAPARIN SOD 40 MG/0.4 ML SYRINGE SC SCH (10:51)
[2020-03-17] MEDS: IV IMMUNE GLOBULIN(IVIG) 10% 20G/200ML IV SCH (11:40)
--- NOTE | 2020-03-17 12:10 | NUR ---
Dr. Patricio / pulmo Doctor at bed side to see pt, doctor discussed plan of care with pt.
[2020-03-17 12:32] VITALS: BP 115/68
--- NOTE | 2020-03-17 15:20 | NUR ---
Dr. Vargas / neuro at bed side to see pt, doctor discussed the plan of care with pt, as per doctor ok to downgrade pt to telemetry, will continue to monitor pt.
--- NOTE | 2020-03-17 16:00 | NUR ---
Nutrition Followup Notes WT: 114.8 kg Pt was sleeping when rounded this morning. Pt appetite is improved and good aeb pt PO intake of 100% x3 meals per RN nutrition doc. Pt with no noted distress per RN doc. Will continue to closely monitor pertinent labs, PO intake and skin status prn. Will followup in 3-5 days Est Energy needs: 8118-8011 kcals (14-18 kcal/kgBW), Est Protein needs: 73-87g (1-1.2g/kg IBW 72.7kg). Will continue to monitor and reassess prn. LABS: Na 133 L, Alb 3.0 L GI: Last BM noted on 03/14 per RN doc. BS: 20 low risk, Please refer to wound assessment report for full details. PES: Partially resolved, pt with adequate po intake x 3 days 1) Increased nutrient needs aeb pt with dysphagia, pending swallow eval r/t pt with no PO intake 2) Obesity aeb 152% IBW and BMI of 36.0 kg/m2 r/t energy intake in excess of energy needs Comments Will continue to closely monitor pertinent labs, PO intake and skin status prn. Will followup in 3-5 days 1) continue assistance with meals. 2) consider ensure Enlive 1 carton bid if PO is low. 3) consider alternate nutrition support if GI is not accessible. 4) Continue current plan of care
[2020-03-17 16:32] VITALS: BP 109/67
--- NOTE | 2020-03-17 18:30 | NUR ---
RT NOTE: PRE AND POST BRONCHODILATOR NIF DONE WITH >-60 ON BOTH ATTEMPTS. CPT PERFORMED WITHOUT ISSUE.
--- NOTE | 2020-03-17 19:15 | NUR ---
Opening Shift Note Received report from Yasmin MCCRAY. Assumed care of patient, awake and alert. school crossing guard supervisor at bedside. No S/S of distress/SOB or pain. Instructed on POC and to call for assist PRN, will continue to monitor for changes Q1hr and PRN.
[2020-03-17] MEDS: ATORVASTATIN 20 MG TAB PO SCH (21:52)
--- NOTE | 2020-03-17 21:55 | NUR ---
RT NOTE: SAME RESULTS. PRE AND POST BRONCHODILATOR NIF DONE WITH >-60 ON BOTH ATTEMPTS. CPT PERFORMED WITHOUT ISSUE.
[2020-03-17 22:00] VITALS: BP 97/47
--- NOTE | 2020-03-17 22:57 | NUR ---
RT NOTE: SPOKE WITH MD WHITTEN, RECEIVED ORDER TO D/C NIF AND CPT. PT ON 2LPM NC SPO2 97% BS CLEAR AND DECREASED WITH NO COMPLAINTS OF SOB. WILL CONTINUE EZPAP WITH MED NEB TX Q4.
[2020-03-18] MEDS: ALBUTEROL SULF 2.5 MG/0.5ML(0.5%) NEB SOLN NEB SCH ×5 (02:22→19:36)
[2020-03-18] MEDS: IPRATROPIUM BROM 0.5 MG/2.5ML INH SOL NEB SCH ×5 (02:22→19:36)
[2020-03-18 05:00] VITALS: BP 99/62
[2020-03-18] MEDS: PYRIDOSTIGMINE BROMIDE 60 MG TAB PO SCH ×4 (05:57→21:55)
[2020-03-18] MEDS: SODIUM CHLOR 0.9% PF (SALINE LOCK) 10ML VIAL/SYR IV SCH ×3 (05:57→21:55)
[2020-03-18] MEDS: LEVOTHYROXINE SODIUM 100 MCG TAB PO SCH (06:48)
--- NOTE | 2020-03-18 07:20 | NUR ---
Opening Shift Note Assumed care of patient, awake and alert. No S/S of distress/SOB or pain. Instructed on POC and to call for assist PRN, will continue to monitor for changes Q1hr and PRN.
[2020-03-18 08:00] VITALS: BP 110/74
[2020-03-18 09:07] VITALS: BP 110/74
[2020-03-18] MEDS ORDERED: IV IMMUNE GLOBULIN(IVIG) 10% 20G/200ML IV SCH (10:00)
--- NOTE | 2020-03-18 10:20 | NUR ---
Doctor Dr. Cedrick Claros at bedside to see patient. Doctor informed that cardiothoracic surgeon will come and see patient today. Doctor discussed plan of care with patient.
[2020-03-18] MEDS: ASPirin 81 mg TAB PO SCH (10:29)
[2020-03-18] MEDS: ENOXAPARIN SOD 40 MG/0.4 ML SYRINGE SC SCH (10:31)
[2020-03-18] MEDS: PANTOPRAZOLE 40 MG/10 ML VIAL INJ IV SCH ×2 (10:31→21:54)
[2020-03-18] MEDS: BUDESONIDE (INHALATION) 0.5 MG/2 ML NEB NEB SCH (10:49)
[2020-03-18 12:54] VITALS: BP 128/83
--- NOTE | 2020-03-18 13:25 | NUR ---
MRI PATIENT WAS WHEELED DOWN FOR BRAIN MRI WITHOUT CONTRAST. MRI ORDERED BY DR. CORDOVA FOR DIPLOPIA.
--- NOTE | 2020-03-18 13:55 | NUR ---
MRI PATIENT RETURNED TO ROOM FROM MRI TEST. PATIENT AMBULATED FROM WHEELCHAIR TO BED. NO DISTRESS NOTED ON BED TRANSFER. PATIENT IV WAS CONNECTED TO PUMP TO CONTINUE WITH IV MED INFUSION.
[2020-03-18 17:23] VITALS: BP 110/63
--- NOTE | 2020-03-18 19:30 | NUR ---
Opening Shift Note Received report from Yasmin MCCRAY. Assumed care of patient, awake and alert. prison guard at bedside. No S/S of distress/SOB or pain. Instructed on POC and to call for assist PRN, will continue to monitor for changes Q1hr and PRN.
[2020-03-18] MEDS: ATORVASTATIN 20 MG TAB PO SCH (21:54)
[2020-03-18 22:00] VITALS: BP 103/68
--- NOTE | 2020-03-19 00:02 | NUR ---
Patient complaints of headache, no pain medication listed. Informed Dr. Dana Claros, awaiting for call back.
--- NOTE | 2020-03-19 00:06 | NUR ---
Spoke to Dr. Dana Claros and received orders, carried out and followed through.
[2020-03-19] MEDS: BUDESONIDE (INHALATION) 0.5 MG/2 ML NEB NEB SCH ×3 (00:12→22:41)
[2020-03-19] MEDS: IPRATROPIUM BROM 0.5 MG/2.5ML INH SOL NEB SCH ×7 (00:12→22:41)
[2020-03-19] MEDS: ALBUTEROL SULF 2.5 MG/0.5ML(0.5%) NEB SOLN NEB SCH ×7 (00:12→22:41)
[2020-03-19] MEDS ORDERED: ONDANSETRON HCL 4 MG/2 ML VIAL IV PRN (00:15)
[2020-03-19] MEDS ORDERED: HYDROmorphone HCL 2 MG/ML VL IV PRN (00:15)
[2020-03-19 00:56] VITALS: BP 103/65
[2020-03-19] MEDS: HYDROcodone-ACET 5/325MG TAB PO PRN ×2 (01:00→09:28)
--- NOTE | 2020-03-19 01:00 | NUR ---
[place] given for headache at 03/12, continue care.
--- NOTE | 2020-03-19 02:35 | NUR ---
No headache at this time.
[2020-03-19 05:00] VITALS: BP 115/74
[2020-03-19] MEDS: SODIUM CHLOR 0.9% PF (SALINE LOCK) 10ML VIAL/SYR IV SCH ×3 (06:00→21:17)
[2020-03-19] MEDS: PYRIDOSTIGMINE BROMIDE 60 MG TAB PO SCH ×4 (06:16→21:17)
[2020-03-19] MEDS: LEVOTHYROXINE SODIUM 100 MCG TAB PO SCH (06:16)
--- NOTE | 2020-03-19 07:40 | NUR ---
Opening Note Received report from evening or night nurse supervisor RN. Patient is awake, alert and oriented. Patient is on 2L NC, respirations even and unlabored. Patient denies pain at this time. Reviewed plan of care with patient, patient verbalized understanding. Bed in low and locked position, call light within reach. Will continue to monitor Q1 hour and PRN. Guards at bedside.
--- NOTE | 2020-03-19 07:42 | NUR ---
Dr. Cedrick Claros at bedside Discussing plan of care with patient and this RN. No new orders received. Will continue to monitor Q1 hour and PRN.
[2020-03-19 08:12] VITALS: BP 135/87
[2020-03-19] MEDS: ASPirin 81 mg TAB PO SCH (09:17)
[2020-03-19] MEDS: PANTOPRAZOLE 40 MG/10 ML VIAL INJ IV SCH ×2 (09:18→21:17)
[2020-03-19] MEDS: ENOXAPARIN SOD 40 MG/0.4 ML SYRINGE SC SCH (09:18)
--- NOTE | 2020-03-19 09:30 | NUR ---
Pain Patient complains of headache 03/12 and is requesting NORCO. Will medicate per orders. Will continue to monitor Q1 hour and PRN. Guards at bedside.
--- NOTE | 2020-03-19 10:00 | NUR ---
Pain reassessment Patient denies pain at this time, and is resting comfortably in bed. Will continue to monitor Q1 hour and PRN.
[2020-03-19 13:12] VITALS: BP 127/70
[2020-03-19 17:01] VITALS: BP 133/78
--- NOTE | 2020-03-19 18:10 | NUR ---
Cardiothoracic consult patient not seen by cardiothoracic doctor. MD Cortez no longer available. Charge nurse Jennifer murdock, states director Deepti will follow up tomorrow.
--- NOTE | 2020-03-19 18:38 | NUR ---
Respiratory note: AT BEDSIDE FOR MED XU MISTRY.
--- NOTE | 2020-03-19 19:09 | NUR ---
Closing Note Report given to hourly shift manager RN. No signs or symptoms of distress noted at this time. Guards at bedside
--- NOTE | 2020-03-19 19:45 | NUR ---
Opening Shift Note Assumed care of patient, awake and alert, oriented x 4, clear speech, follows direction. On oxygen at 2L via NC with even and unlabored respirations, no S/S of distress/SOB. Patient reports tolerating dinner with no problems. patient denies difficulty swallowing. patient turns independently in bed. Instructed on POC and to call for assist PRN, will continue to monitor for changes Q1hr and PRN.
[2020-03-19] MEDS: ATORVASTATIN 20 MG TAB PO SCH (21:17)
[2020-03-19 22:00] VITALS: BP 87/59
--- NOTE | 2020-03-19 22:49 | NUR ---
Respiratory note: AT BEDSIDE FOR MED XU TX. PT COMMUNICATED HE HAS BEEN COUGHING UP SPUTUM HE IS COLLECTING ON A STYROFOAM CUP AT BEDSIDE. SECRETIONS EXPECTORATED LOOK DING/YELLOW AND APPEAR THICK.
--- NOTE | 2020-03-19 23:00 | NUR ---
PT HAS CONCERNS WITH (RIGHT HAND) IV SITE. COMMUNICATED PTS CONCERNS TO SHAZIA PEDRO.
--- NOTE | 2020-03-20 01:50 | NUR ---
IV removal IV DC'd to right hand with clean sterile technique, catheter fully intact. Pressure dressing applied to site. Patient tolerated well. NOTE:
--- NOTE | 2020-03-20 02:00 | NUR ---
IV insertion IV access obtained, via clean sterile technique by inserting 22 gauge catheter at left forearm after 1 attempt(s). IV secured properly. No trauma to site. Patient tolerated well. NOTE:
[2020-03-20] MEDS: ALBUTEROL SULF 2.5 MG/0.5ML(0.5%) NEB SOLN NEB SCH ×6 (02:30→22:02)
[2020-03-20] MEDS: IPRATROPIUM BROM 0.5 MG/2.5ML INH SOL NEB SCH ×6 (02:30→22:02)
--- NOTE | 2020-03-20 02:36 | NUR ---
Respiratory note: AT BEDSIDE FOR MED XU MISTRY.
[2020-03-20 05:00] VITALS: BP 112/49
[2020-03-20] MEDS: LEVOTHYROXINE SODIUM 100 MCG TAB PO SCH (05:59)
[2020-03-20] MEDS: PYRIDOSTIGMINE BROMIDE 60 MG TAB PO SCH ×4 (05:59→21:31)
[2020-03-20] MEDS: SODIUM CHLOR 0.9% PF (SALINE LOCK) 10ML VIAL/SYR IV SCH ×3 (05:59→21:30)
--- NOTE | 2020-03-20 06:54 | NUR ---
Closing Note patient resting in bed with even and unlabored respirations, no s/s of distress or pain. bed in lowest locked position with side rails up x 2 and call light within reach.
--- NOTE | 2020-03-20 07:35 | NUR ---
Opening Shift Note Assumed care of patient, awake and alert, oriented x 4, clear speech, follows direction. On oxygen at 2L via NC with even and unlabored respirations, no S/S of distress/SOB. Patient reports tolerating breakfast with no problems. patient denies difficulty swallowing. patient turns independently in bed. Instructed on POC and to call for assist PRN, will continue to monitor for changes Q1hr and PRN.
--- NOTE | 2020-03-20 07:58 | NUR ---
ROUNDING MD Dana LEZAMA AT BEDSIDE. ALL QUESTIONS AND CONCERNS ADDRESSED AT THIS TIME. MD UPDATED ON NEW RN PEDIATRIC ICU Arpit URBINA AND TO CALL MD TO UPDATE ON CONSULT AND POC.
[2020-03-20 09:00] VITALS: BP 118/79
[2020-03-20] MEDS: ENOXAPARIN SOD 40 MG/0.4 ML SYRINGE SC SCH (09:59)
[2020-03-20] MEDS: ASPirin 81 mg TAB PO SCH (09:59)
[2020-03-20] MEDS: PANTOPRAZOLE 40 MG/10 ML VIAL INJ IV SCH ×2 (09:59→21:30)
[2020-03-20] MEDS: BUDESONIDE (INHALATION) 0.5 MG/2 ML NEB NEB SCH ×2 (10:39→18:30)
[2020-03-20 13:00] VITALS: BP 125/62
--- NOTE | 2020-03-20 13:00 | NUR ---
MD URBINA RETURNED CALL ACCORDING TO MD Arpit URBINA HE SAW THE PATIENT ON 03/18/20 AND SPOKE WITH MD WALTERS AND CLARA RE: POC. STATES " I HAVE SEEN THE PATIENT AND WROTE A NOTE IN THE CHART WITH THE POC. IF THERE ARE ANY OTHER ISSUES, THAN DR WALTERS WILL NEED TO CONTACT ME."
--- NOTE | 2020-03-20 15:40 | NUR ---
Nutrition Followup Notes WT: 117.2 kg Pt reports appetite is good. Pt intake is adequate aeb pt PO intake of 100% of meals per RN nutrition doc. Pt with no noted distress per RN doc. Will continue to closely monitor pertinent labs, PO intake and skin status prn. Will followup in 3-5 days Est Energy needs: 1070-4628 kcals (14-18 kcal/kgBW), Est Protein needs: 73-87g (1-1.2g/kg IBW 72.7kg). Will continue to monitor and reassess prn. LABS: Alb 3.0 L GI: Last BM noted on 03/20 per RN doc. BS: 21 low risk, Please refer to wound assessment report for full details. PES: Resolved, pt with regular diet 1) Increased nutrient needs aeb pt with dysphagia, pending swallow eval r/t pt with no PO intake 2) Obesity aeb 152% IBW and BMI of 36.0 kg/m2 r/t energy intake in excess of energy needs Comments Will continue to closely monitor pertinent labs, PO intake and skin status prn. Will followup in 3-5 days 1)Pt po intake >75% 2) Continue current plan of care
[2020-03-20 16:56] VITALS: BP 119/73
--- NOTE | 2020-03-20 18:46 | NUR ---
MD MAHOGANY ELIZABETH AT BEDSIDE. STATES " PLEASE PASS ON AND ALERT THE MD. 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
--- NOTE | 2020-03-20 19:45 | NUR ---
Opening Shift Note Assumed care of patient, awake and alert, oriented x 4, clear speech, follows direction. On room air with even and unlabored respirations, no S/S of distress/SOB. Patient reports tolerating dinner with no problems. patient denies difficulty swallowing. patient turns independently in bed. Instructed on POC and to call for assist PRN, will continue to monitor for changes Q1hr and PRN.
[2020-03-20] MEDS: ATORVASTATIN 20 MG TAB PO SCH (21:30)
[2020-03-20 22:00] VITALS: BP 122/75
[2020-03-21] MEDS: IPRATROPIUM BROM 0.5 MG/2.5ML INH SOL NEB SCH ×6 (02:11→22:44)
[2020-03-21] MEDS: ALBUTEROL SULF 2.5 MG/0.5ML(0.5%) NEB SOLN NEB SCH ×6 (02:11→22:44)
[2020-03-21 05:00] VITALS: BP 125/66
[2020-03-21] MEDS: SODIUM CHLOR 0.9% PF (SALINE LOCK) 10ML VIAL/SYR IV SCH ×3 (05:55→21:08)
[2020-03-21] MEDS: BUDESONIDE (INHALATION) 0.5 MG/2 ML NEB NEB SCH ×2 (06:01→22:44)
[2020-03-21] MEDS: PYRIDOSTIGMINE BROMIDE 60 MG TAB PO SCH ×4 (06:17→21:09)
[2020-03-21] MEDS: LEVOTHYROXINE SODIUM 100 MCG TAB PO SCH (06:17)
--- NOTE | 2020-03-21 07:30 | NUR ---
Opening Shift Note Assumed care of patient, awake and alert. No S/S of distress/SOB or pain. Bed in lowest locked position, call light within reach, side rails up x 2. Instructed on POC and to call for assist PRN, will continue to monitor for changes Q1hr and PRN.
[2020-03-21 08:50] VITALS: BP 122/65
[2020-03-21] MEDS: PANTOPRAZOLE 40 MG/10 ML VIAL INJ IV SCH ×2 (10:37→21:08)
[2020-03-21] MEDS: ASPirin 81 mg TAB PO SCH (10:38)
[2020-03-21] MEDS: ENOXAPARIN SOD 40 MG/0.4 ML SYRINGE SC SCH (10:38)
--- NOTE | 2020-03-21 11:33 | NUR ---
SPOKE TO DR. Dana LEZAMA. PER DR. LEZAMA, DR. URBINA WILL SEE THE PATIENT AN OUT PATIENT. PER DR. LEZAMA, THE DISCHARGE SUMMARY IS TO BE SENT WITH THE PATIENT IN THE DISCHARGE PACKET AND THE PRESCRIPTION WILL BE SENT TO THE UNIT TODAY.
[2020-03-21 12:41] VITALS: BP 109/63
[2020-03-21 16:35] VITALS: BP 113/70
--- NOTE | 2020-03-21 17:00 | NUR ---
CALLED DR. LEZAMA. PER DR. LEZAMA, HE WILL DELIVER THE PRESCRIPTION.
--- NOTE | 2020-03-21 19:30 | NUR ---
Opening Shift Note Assumed care of patient, awake and alert. No S/S of distress/SOB or pain. Instructed on POC and to call for assist PRN, will continue to monitor for changes Q1hr and PRN. Side rails up x2. Bed locked in lowest position. Call light within reach.
--- NOTE | 2020-03-21 19:38 | NUR ---
SPOKE WITH DR. Dana LEZAMA DISCUSSED THE DISCHARGE WITH DR. Dana LEZAMA AND THE [facility] DOCTOR, DR. OLSEN, REGARDING PATIENT DISCHARGE AND PRESCRIPTIONS. DR. Dana LEZAMA AND RN NOTIFIED AND UPDATED DR. OLSEN ON THE IMPORTANCE OF THE MEDICATION PYRIDOSTIGMINE 60 MG FOR THE PATIENT FOUR TIMES A DAY AND THE NEED FOR THE AVAILABILITY OF THE MEDICATION IMMEDIATELY AT THE FACILITY. DR. OLSEN VERBALIZED UNDERSTANDING AND STATED THAT HE WILL BE ABLE TO HAVE THE MEDICATION AVAILABLE BY TUESDAY OR TUESDAY NEXT WEEK AND TO KEEP THE PATIENT ADMITTED AT [facility] UNTIL THE MEDICATION IS AVAILABLE. PER DR. OLSEN, HE WILL NOTIFY THE ATTENDING DOCTOR, DR. Dana LEZAMA WHEN THE MEDICATION IS AVAILABLE.
[2020-03-21] MEDS: ATORVASTATIN 20 MG TAB PO SCH (21:08)
[2020-03-21 21:53] VITALS: BP 110/78
[2020-03-22 00:52] VITALS: BP 110/78
[2020-03-22] MEDS: IPRATROPIUM BROM 0.5 MG/2.5ML INH SOL NEB SCH ×6 (02:15→22:15)
[2020-03-22] MEDS: ALBUTEROL SULF 2.5 MG/0.5ML(0.5%) NEB SOLN NEB SCH ×6 (02:15→22:14)
[2020-03-22 04:59] VITALS: BP 127/69
[2020-03-22] MEDS: PYRIDOSTIGMINE BROMIDE 60 MG TAB PO SCH ×4 (06:16→21:40)
[2020-03-22] MEDS: SODIUM CHLOR 0.9% PF (SALINE LOCK) 10ML VIAL/SYR IV SCH ×3 (06:16→21:21)
[2020-03-22] MEDS: LEVOTHYROXINE SODIUM 100 MCG TAB PO SCH (06:16)
[2020-03-22] MEDS: BUDESONIDE (INHALATION) 0.5 MG/2 ML NEB NEB SCH ×2 (06:42→22:13)
--- NOTE | 2020-03-22 07:30 | NUR ---
Opening Shift Note Assumed care of patient, awake and alert. No S/S of distress/SOB or pain. Bed in lowest and locked position with side rails up x2 and call light in reach. Instructed on POC and to call for assist PRN, will continue to monitor for changes Q1hr and PRN.
[2020-03-22 09:00] VITALS: BP 113/79
[2020-03-22] MEDS: ASPirin 81 mg TAB PO SCH (10:56)
[2020-03-22] MEDS: ENOXAPARIN SOD 40 MG/0.4 ML SYRINGE SC SCH (10:56)
[2020-03-22] MEDS: PANTOPRAZOLE 40 MG/10 ML VIAL INJ IV SCH ×2 (10:56→21:21)
[2020-03-22 13:00] VITALS: BP 127/73
[2020-03-22 17:00] VITALS: BP 119/68
[2020-03-22] MEDS: ATORVASTATIN 20 MG TAB PO SCH (21:20)
[2020-03-22 22:00] VITALS: BP 95/57
[2020-03-23] MEDS: IPRATROPIUM BROM 0.5 MG/2.5ML INH SOL NEB SCH ×6 (02:16→22:28)
[2020-03-23] MEDS: ALBUTEROL SULF 2.5 MG/0.5ML(0.5%) NEB SOLN NEB SCH ×6 (02:16→22:28)
[2020-03-23] MEDS: SODIUM CHLOR 0.9% PF (SALINE LOCK) 10ML VIAL/SYR IV SCH ×3 (05:16→21:45)
[2020-03-23] MEDS: PYRIDOSTIGMINE BROMIDE 60 MG TAB PO SCH ×4 (05:16→21:45)
[2020-03-23 05:39] VITALS: BP 111/67
[2020-03-23] MEDS: LEVOTHYROXINE SODIUM 100 MCG TAB PO SCH (05:52)
--- NOTE | 2020-03-23 07:20 | NUR ---
Care report given to Bassam Gregory, patient is resting no distress.
[2020-03-23 09:00] VITALS: BP 110/75
[2020-03-23] MEDS: BUDESONIDE (INHALATION) 0.5 MG/2 ML NEB NEB SCH ×2 (09:33→22:28)
--- NOTE | 2020-03-23 10:00 | NUR ---
IV insertion AND IV removal LEFT HAND IV DC'd with clean sterile technique, catheter fully intact. Pressure dressing applied to site. Patient tolerated well. IV access obtained, via clean sterile technique by inserting 20 gauge catheter at RIGHT AC after 2 attempt(s). IV secured properly. No trauma to site. Patient tolerated well.
[2020-03-23] MEDS: PANTOPRAZOLE 40 MG/10 ML VIAL INJ IV SCH ×2 (10:04→21:44)
[2020-03-23] MEDS: ASPirin 81 mg TAB PO SCH (10:05)
[2020-03-23] MEDS: ENOXAPARIN SOD 40 MG/0.4 ML SYRINGE SC SCH (10:05)
--- NOTE | 2020-03-23 10:33 | NUR ---
Nutrition Followup Notes WT: 110.5 kg Pt appetite is good aeb 100% PO intake over 5 meals per RN doc. Pt with no distress, feeling better. Will continue to closely monitor pertinent labs, PO intake and skin status prn. Will followup in 3-5 days Est Energy needs: 1260-1353 kcals (14-18 kcal/kgBW), Est Protein needs: 73-87g (1-1.2g/kg IBW 72.7kg). Will continue to monitor and reassess prn. LABS: Na 133 L, Alb 3.0 L GI: Last BM noted on 03/20 per RN doc. BS: 21 low risk, Please refer to wound assessment report for full details. PES: Resolved, pt with regular diet 1) Increased nutrient needs aeb pt with dysphagia, pending swallow eval r/t pt with no PO intake 2) Obesity aeb 152% IBW and BMI of 36.0 kg/m2 r/t energy intake in excess of energy needs Comments Will continue to closely monitor pertinent labs, PO intake and skin status prn. Will followup in 3-5 days 1)Pt po intake >75% 2) Continue current plan of care
[2020-03-23 13:00] VITALS: BP 119/73
[2020-03-23 17:00] VITALS: BP 129/73
[2020-03-23] MEDS: ATORVASTATIN 20 MG TAB PO SCH (21:45)
[2020-03-23 22:00] VITALS: BP 96/60
[2020-03-24] MEDS: ALBUTEROL SULF 2.5 MG/0.5ML(0.5%) NEB SOLN NEB SCH ×6 (02:20→22:10)
[2020-03-24] MEDS: IPRATROPIUM BROM 0.5 MG/2.5ML INH SOL NEB SCH ×6 (02:20→22:10)
[2020-03-24] MEDS: SODIUM CHLOR 0.9% PF (SALINE LOCK) 10ML VIAL/SYR IV SCH ×3 (05:38→22:01)
[2020-03-24] MEDS: PYRIDOSTIGMINE BROMIDE 60 MG TAB PO SCH ×4 (05:38→22:02)
[2020-03-24 05:49] VITALS: BP 127/79
[2020-03-24] MEDS: LEVOTHYROXINE SODIUM 100 MCG TAB PO SCH (06:28)
--- NOTE | 2020-03-24 07:22 | NUR ---
Care report given to Roxy Nagel, patient is resting no distress, given update report to the assisted drug abuse social worker.
--- NOTE | 2020-03-24 07:26 | NUR ---
MEDNEB GIVEN VIA EZ-PAP, NO ADVERSE REACTIONS NOTED.
[2020-03-24 08:53] VITALS: BP 123/70
[2020-03-24] MEDS: PANTOPRAZOLE 40 MG/10 ML VIAL INJ IV SCH ×2 (10:24→22:01)
[2020-03-24] MEDS: ASPirin 81 mg TAB PO SCH (10:25)
[2020-03-24] MEDS: BUDESONIDE (INHALATION) 0.5 MG/2 ML NEB NEB SCH ×2 (11:00→22:10)
[2020-03-24 12:30] VITALS: BP 152/97
[2020-03-24 17:00] VITALS: BP 131/78
--- NOTE | 2020-03-24 19:21 | NUR ---
RECEIVED PATIENT FROM DAY SHIFT RN. PATIENT RESTING IN BED. NO S/S OF DISTRESS NOTED. DENIED PAIN FOR NOW. POC INSTRUCTED AND ENCOURAGED PATIENT TO CALL FOR ROLL INSPECTOR IF NEEDED. BED IN LOWEST POSITION WITH SIDE RAILS UP X 2. CALL SALINAS WITHIN REACH. GUARDS AT BEDSIDE. CONTINUE TO MONITOR FOR CHANGES Q1H AND PRN.
[2020-03-24 22:00] VITALS: BP 110/66
[2020-03-24] MEDS: ATORVASTATIN 20 MG TAB PO SCH (22:02)
--- NOTE | 2020-03-24 22:05 | NUR ---
SCHEDULED ORAL MEDICATION ADMINISTERED ORDERED. PATIENT SWALLOWED WELL. NO S/S OF ASPIRATION NOTED. CONTINUE TO MONITOR.
[2020-03-24 22:49] VITALS: BP 131/78
[2020-03-25] MEDS: ALBUTEROL SULF 2.5 MG/0.5ML(0.5%) NEB SOLN NEB SCH ×6 (02:20→22:18)
[2020-03-25] MEDS: IPRATROPIUM BROM 0.5 MG/2.5ML INH SOL NEB SCH ×6 (02:20→22:18)
--- NOTE | 2020-03-25 03:38 | NUR ---
PATIENT SLEEPING. NO S/S OF DISTRESS NOTED. CONTINUE CARE.
[2020-03-25 05:36] VITALS: BP 112/80
[2020-03-25] MEDS: SODIUM CHLOR 0.9% PF (SALINE LOCK) 10ML VIAL/SYR IV SCH ×3 (06:03→21:49)
[2020-03-25] MEDS: LEVOTHYROXINE SODIUM 100 MCG TAB PO SCH (06:04)
[2020-03-25] MEDS: PYRIDOSTIGMINE BROMIDE 60 MG TAB PO SCH ×4 (06:04→21:49)
--- NOTE | 2020-03-25 06:04 | NUR ---
SCHEDULED ORAL MEDICATION ADMINISTERED ORDERED. PATIENT SWALLOWED WELL. NO S/S OF ASPIRATION NOTED. CONTINUE TO MONITOR.
[2020-03-25] MEDS: BUDESONIDE (INHALATION) 0.5 MG/2 ML NEB NEB SCH ×2 (06:58→18:31)
--- NOTE | 2020-03-25 07:30 | NUR ---
Opening Shift Note Assuming care of patient at this time. Patient is awake and alert. Patient denies pain. Patient shows no signs or symptoms of distress or shortness of breath. Instructed patient on the plan of care for today and to call for assistance as needed. Call light within reach. Will continue to round hourly and as needed. Guards at bedside.
[2020-03-25 09:00] VITALS: BP 133/73
[2020-03-25] MEDS: ASPirin 81 mg TAB PO SCH (10:16)
[2020-03-25] MEDS: PANTOPRAZOLE 40 MG/10 ML VIAL INJ IV SCH ×2 (10:17→21:49)
[2020-03-25 13:00] VITALS: BP 139/77
[2020-03-25 17:00] VITALS: BP 119/74
--- NOTE | 2020-03-25 19:30 | NUR ---
Closing Shift Note Patient resting in bed. No distress noted. Report given. Will endorse care to the table games shift manager RN.
--- NOTE | 2020-03-25 19:40 | NUR ---
RECEIVED PATIENT FROM DAY SHIFT RN. PATIENT RESTING IN BED. NO S/S OF DISTRESS NOTED. DENIED PAIN FOR NOW. POC INSTRUCTED AND ENCOURAGED PATIENT TO CALL FOR CENTRAL SUPPLY NURSE IF NEEDED. BED IN LOWEST POSITION WITH SIDE RAILS UP X 2. CALL SALINAS WITHIN REACH. GUARDS AT BEDSIDE. CONTINUE TO MONITOR FOR CHANGES Q1H AND PRN.
[2020-03-25 21:30] VITALS: BP 105/66
[2020-03-25] MEDS: ATORVASTATIN 20 MG TAB PO SCH (21:49)
--- NOTE | 2020-03-25 22:00 | NUR ---
SCHEDULED ORAL MEDICATION ADMINISTERED ORDERED. PATIENT SWALLOWED WELL. NO S/S OF ASPIRATION NOTED. CONTINUE TO MONITOR.
[2020-03-25] MEDS: ACETYLCYSTEINE 20%(200MG/ML) SOL 4ML NEB SCH (22:19)
[2020-03-26] MEDS: ALBUTEROL SULF 2.5 MG/0.5ML(0.5%) NEB SOLN NEB SCH ×6 (02:20→22:10)
[2020-03-26] MEDS: IPRATROPIUM BROM 0.5 MG/2.5ML INH SOL NEB SCH ×6 (02:20→22:10)
--- NOTE | 2020-03-26 03:56 | NUR ---
PATIENT SLEEPING. NO S/S OF DISTRESS NOTED. CONTINUE TO MONITOR.
[2020-03-26 05:00] VITALS: BP 117/62
[2020-03-26] MEDS: SODIUM CHLOR 0.9% PF (SALINE LOCK) 10ML VIAL/SYR IV SCH ×3 (06:31→22:00)
[2020-03-26] MEDS: PYRIDOSTIGMINE BROMIDE 60 MG TAB PO SCH ×4 (06:31→22:00)
[2020-03-26] MEDS: LEVOTHYROXINE SODIUM 100 MCG TAB PO SCH (06:31)
--- NOTE | 2020-03-26 06:35 | NUR ---
SCHEDULED ORAL MEDICATION ADMINISTERED ORDERED. PATIENT SWALLOWED WELL. NO S/S OF ASPIRATION NOTED. CONTINUE TO MONITOR.
[2020-03-26] MEDS: ACETYLCYSTEINE 20%(200MG/ML) SOL 4ML NEB SCH ×3 (06:56→22:10)
[2020-03-26 09:00] VITALS: BP 126/70
[2020-03-26] MEDS: ASPirin 81 mg TAB PO SCH (09:45)
[2020-03-26] MEDS: PANTOPRAZOLE 40 MG/10 ML VIAL INJ IV SCH ×2 (09:45→22:00)
[2020-03-26] MEDS: BUDESONIDE (INHALATION) 0.5 MG/2 ML NEB NEB SCH ×2 (11:04→22:10)
[2020-03-26 13:00] VITALS: BP 116/72
--- NOTE | 2020-03-26 14:02 | NUR ---
Nutrition Followup Notes WT: 118.9 kg Pt appetite is good aeb 100% PO intake per RN doc. Pt with no distress, feeling better. Will continue to closely monitor pertinent labs, PO intake and skin status prn. Will followup in 3-5 days Est Energy needs: 6286-9235 kcals (14-18 kcal/kgBW), Est Protein needs: 73-87g (1-1.2g/kg IBW 72.7kg). Will continue to monitor and reassess prn. LABS: Na 133 L, Alb 3.0 L GI: Last BM noted on 03/24 per RN doc. BS: 19 low risk, Please refer to wound assessment report for full details. PES: Resolved, pt with regular diet 1) Increased nutrient needs aeb pt with dysphagia, pending swallow eval r/t pt with no PO intake 2) Obesity aeb 152% IBW and BMI of 36.0 kg/m2 r/t energy intake in excess of energy needs Comments Will continue to closely monitor pertinent labs, PO intake and skin status prn. Will followup in 3-5 days 1)Pt po intake >75% 2) Continue current plan of care
--- NOTE | 2020-03-26 15:17 | NUR ---
Respiratory note: 14:00 MED NEB TX NOT GIVEN. PT OFF UNIT. WILL RESUME WITH NEXT SCHEDULED TX AT 18:00. RN AWARE TO HAVE RT PAGED IF NEEDED.
[2020-03-26 17:00] VITALS: BP 127/72
--- NOTE | 2020-03-26 19:15 | NUR ---
Closing Shift Note Patient resting in bed. No distress noted. Report given. Will endorse care to the security shift supervisor RN.
--- NOTE | 2020-03-26 19:30 | NUR ---
Opening Shift Note Assumed care of patient, awake, AAOx4. No S/S of distress/SOB or pain. Guards at bedside. On room air and ambulatory. Bed in lowest locked position, side rails up x2, call light within reach. Instructed on POC and to call for assist PRN, will continue to monitor for changes Q1hr and PRN.
[2020-03-26 22:00] VITALS: BP 123/79
[2020-03-26] MEDS: ATORVASTATIN 20 MG TAB PO SCH (22:00)
[2020-03-27] MEDS: IPRATROPIUM BROM 0.5 MG/2.5ML INH SOL NEB SCH ×6 (02:04→21:55)
[2020-03-27] MEDS: ALBUTEROL SULF 2.5 MG/0.5ML(0.5%) NEB SOLN NEB SCH ×6 (02:04→21:55)
[2020-03-27 05:00] VITALS: BP 120/80
[2020-03-27] MEDS: ACETYLCYSTEINE 20%(200MG/ML) SOL 4ML NEB SCH ×3 (05:56→21:55)
[2020-03-27] MEDS: PYRIDOSTIGMINE BROMIDE 60 MG TAB PO SCH ×4 (06:13→22:38)
[2020-03-27] MEDS: SODIUM CHLOR 0.9% PF (SALINE LOCK) 10ML VIAL/SYR IV SCH ×3 (06:13→22:38)
[2020-03-27] MEDS: LEVOTHYROXINE SODIUM 100 MCG TAB PO SCH (06:14)
[2020-03-27 09:00] VITALS: BP 131/82
[2020-03-27] MEDS: BUDESONIDE (INHALATION) 0.5 MG/2 ML NEB NEB SCH ×2 (10:00→21:55)
[2020-03-27] MEDS: ASPirin 81 mg TAB PO SCH (10:30)
[2020-03-27] MEDS: PANTOPRAZOLE 40 MG/10 ML VIAL INJ IV SCH ×2 (10:30→22:37)
[2020-03-27] MEDS ORDERED: ACETAMINOPHEN 325 MG TAB PO PRN (12:45)
[2020-03-27 13:00] VITALS: BP 139/93
[2020-03-27 17:00] VITALS: BP 125/76
--- NOTE | 2020-03-27 19:14 | NUR ---
Opening Shift Note Assumed care of patient, awake, alert and oriented x4, on room air with even and unlabored respirations, no S/S of distress/SOB or pain. Patient able to turn in bed independently, bed in lowest locked position, side rails up x2, and call light within reach. Instructed on POC and to call for assist PRN, will continue to monitor for changes Q1hr and PRN.
[2020-03-27 19:16] VITALS: BP 125/76
--- NOTE | 2020-03-27 19:33 | NUR ---
Closing Shift Note Patient resting in bed. No distress noted. Guards at bedside. Report given. Will endorse care to the machinist 2nd shift RN.
[2020-03-27 22:17] VITALS: BP 108/67
[2020-03-27] MEDS: ATORVASTATIN 20 MG TAB PO SCH (22:38)
[2020-03-28] MEDS: ALBUTEROL SULF 2.5 MG/0.5ML(0.5%) NEB SOLN NEB SCH ×5 (01:55→15:09)
[2020-03-28] MEDS: IPRATROPIUM BROM 0.5 MG/2.5ML INH SOL NEB SCH ×5 (01:55→15:09)
--- NOTE | 2020-03-28 01:55 | NUR ---
Respiratory note: SCHEDULED MED NEB TX NOT GIVEN. PT WAS ASLEEP AND DIDNT WANT TO DO TX AT THIS TIME. NO DISTRESS NOTED.
[2020-03-28 05:09] VITALS: BP 117/77
[2020-03-28] MEDS: SODIUM CHLOR 0.9% PF (SALINE LOCK) 10ML VIAL/SYR IV SCH ×2 (06:45→14:00)
[2020-03-28] MEDS: PYRIDOSTIGMINE BROMIDE 60 MG TAB PO SCH ×2 (06:45→11:59)
[2020-03-28] MEDS: LEVOTHYROXINE SODIUM 100 MCG TAB PO SCH (06:46)
[2020-03-28] MEDS: ACETYLCYSTEINE 20%(200MG/ML) SOL 4ML NEB SCH ×3 (07:48→15:09)
[2020-03-28] MEDS: PANTOPRAZOLE 40 MG/10 ML VIAL INJ IV SCH (09:29)
[2020-03-28] MEDS: ASPirin 81 mg TAB PO SCH (09:30)
[2020-03-28] MEDS: BUDESONIDE (INHALATION) 0.5 MG/2 ML NEB NEB SCH (11:36)
[2020-03-28] MEDS ORDERED: ATOR20TA50 PO (13:40)
[2020-03-28] MEDS ORDERED: LEV100T PO (13:40)
--- NOTE | 2020-03-28 15:23 | NUR ---
Discharge instructions given as ordered. Encourage to follow up with PMD as instructed. All questions and concerns addressed. Patient verbalized understanding. Medication reconciliation form completed and copy given to patient. IV removed with catheter intact, pressure dressing applied. Telemetry unit returned to ICU. Patient awaiting transportation from facility, accompanied by [facility] guards. No distress noted at this time.
== END 2020-03-28 15:30 | disposition home or self-care (01) | DRG 56 ==
LOC: EEVIPCON 15:23 → ER 15:23 → OVERFLOW 15:24 → WEST WING 20:56 → TELE-WESTW 03-11 22:49
PROVIDERS: ADMIT Internal Medicine; ATTEND Internal Medicine
DX: G70.01 Myasthenia gravis with (acute) exacerbation (principal); J96.01 Acute respiratory failure with hypoxia; J98.11 Atelectasis; D72.829 Elevated white blood cell count, unspecified; J44.9 Chronic obstructive pulmonary disease, unspecified; I10 Essential (primary) hypertension; K22.0 Achalasia of cardia; E66.9 Obesity, unspecified; R13.12 Dysphagia, oropharyngeal phase; D15.0 Benign neoplasm of thymus; E03.9 Hypothyroidism, unspecified; F41.9 Anxiety disorder, unspecified; Z20.828 Contact with and (suspected) exposure to other viral communicable diseases; Z88.0 Allergy status to penicillin; Z87.891 Personal history of nicotine dependence; Z86.73 Personal history of transient ischemic attack (TIA), and cerebral infarction without residual deficits; Z68.39 Body mass index [BMI] 39.0-39.9, adult
CPT/HCPCS: 36415; 36600; 70360; 70450; 70551; 71045; 71275; 74220; 80048; 80053; 80074; 80307; 81001; 82805; 84439; 84443; 85025; 87081; 92507; 92610; 93306; 93970; 94640; 94667; 94668; C9113; G0378; J1450; J1561; J2405